=== PATIENT | male | born 1945 | race Caucasian/White ===

== ENCOUNTER → 2020-05-14 08:46 | Outpatient (CLI) | payer MEDICARE, BC, SELFPAY ==
[2020-05-14 09:45] LABS: Add Manual Diff / Slide Review NO; Basophils Absolute Auto 0 /uL (0-100); Basophils Percent Auto 0.5 % (0-2); Eosinophils Absolute Auto 100 /uL (0-450); Eosinophils Percent Auto 1.8 % (2-4); Hematocrit 45.1 % (41-53); Hemoglobin 15.1 g/dL (13.5-17.5); Lymphocytes Absolute Auto 2300 /uL (1100-4500); Lymphocytes Percent Auto 29.7 % (25-40); Mean Corpuscular HGB Conc 33.5 % (30-36); Mean Corpuscular Hemoglobin 32.4 PG (26-34); Mean Corpuscular Volume 96.7 fL (80-100); Monocytes Absolute Auto 700 /uL (0-900); Monocytes Percent Auto 9.4 % (3-14); Neutrophils Absolute Auto 4500 /uL (1500-7000); Neutrophils Percent Auto 58.6 % (50-75); Platelet Count 208 X10^3/uL (150-400); Red Blood Cell Count 4.67 X10^6/uL (4.5-5.9); Red Cell Distribution Width 13.1 % (11.6-14.8); White Blood Cell Count 7.7 X10^3/uL (4.5-11.0)
[2020-05-14 10:09] LABS: Alanine Aminotransferase 35 IU/L (<50); Albumin 4.5 g/dL (3.5-5.0); Albumin Globulin Ratio 1.5 (1.0-2.8); Alkaline Phosphatase 72 U/L (38-126); Aspartate Aminotransferase 30 IU/L (17-59); BUN Creatinine Ratio 15.4 (6-22); Bilirubin Total 0.7 mg/dL (0.2-1.3); Blood Urea Nitrogen 16 mg/dL (9-20); Calcium 9.3 mg/dL (8.4-10.2); Carbon Dioxide 28 mmol/L (22-32); Chloride 104 mmol/L (98-107); Cholesterol 136 mg/dL (140-199); Estimated Glomerular Filt Rate > 60.0 mL/min (>60); Glucose 105 mg/dL (80-110); HDL Cholesterol 48 mg/dL (40-60); HEMOLYSIS < 15 (0-50); LDL Cholesterol Calculated 59 mg/dL (<100); Potassium 4.5 mmol/L (3.4-5.1); Sodium 140 mmol/L (137-145); Total Protein 7.5 g/dL (6.3-8.2); Triglycerides 147 mg/dL (35-150)
[2020-05-14 10:38] LABS: Prostate Specific Antigen Scrn 1.24 ng/mL (0.1-4.0)
[2020-05-14 11:34] LABS: Testosterone 173 ng/dL (71.8-623)
== END ==
PROVIDERS: PCP Internal Medicine; Referring Provider Internal Medicine; Visit Provider Internal Medicine
DX: E66.9 Obesity, unspecified (principal); E78.2 Mixed hyperlipidemia; I10 Essential (primary) hypertension; E29.1 Testicular hypofunction; L40.9 Psoriasis, unspecified; K21.00 Gastro-esophageal reflux disease with esophagitis, without bleeding; Z12.5 Encounter for screening for malignant neoplasm of prostate
CPT/HCPCS: 36415; 80053; 80061; 84403; 85025; G0103

== ENCOUNTER → 2020-05-28 10:31 | Outpatient (CLI) | payer MEDICARE, BC, SELFPAY ==
--- NOTE | 2020-05-28 | DI.US.S_ITS ---
PROCEDURE: US ABD AORTA ANEURYSM SCREEN INDICATIONS: Encounter for screening for cardiovascular disorde TECHNIQUE: Real time scanning was performed of the aorta and iliac arteries, with image documentation. COMPARISON: None. FINDINGS: Aorta: Proximal aortic diameter measures 1.6 cm. Mid-aorta measures 1.7 cm. Distal aortic diameter is 1.1 cm. Iliac arteries: Right common iliac artery measures up to 0.8 cm. Left common iliac artery measures up to 0.8 cm. IMPRESSION: Negative for aneurysm. Dictated by: Payam Boyer M.D. on 05/28/2020 at 11:22 Approved by: Payam Boyer M.D. on 05/28/2020 at 11:27
== END ==
PROVIDERS: PCP Internal Medicine; Referring Provider Internal Medicine; Visit Provider Internal Medicine
DX: Z13.6 Encounter for screening for cardiovascular disorders (principal)
CPT/HCPCS: 76706

== ENCOUNTER → 2020-07-09 10:24 | Outpatient (CLI) | payer MEDICARE, BC, SELFPAY ==
[2020-07-09 12:30] LABS: COVID19 -Nasal RAPID Negative (Negative)
== END ==
PROVIDERS: PCP Internal Medicine; Referring Provider Internal Medicine; Visit Provider Internal Medicine
DX: Z11.59 Encounter for screening for other viral diseases (principal)
CPT/HCPCS: 87635; C9803

== ENCOUNTER → 2020-07-10 06:51 | Outpatient (CLI) | payer MEDICARE, BC, SELFPAY ==
--- NOTE | 2020-07-18 17:34 | PM.PFT.1 ---
Pulmonary Function Test Referral & Results Date Patient Seen: 07/10/20 Requesting provider: Neptali Velasco Results: The spirometry demonstrates an FVC of 3.43 L which is 76% of predicted. The FEV1 was measured at 2.21 L which is 67% of predicted. The FEV1/FVC ratio was 64 which is 88% of predicted. Following the administration of bronchodilator there was a 24% improvement in FEF 25-75%. Lung volumes show an SVC of 3.22 L which is 69% of predicted. The diffusing capacity was measured at 21.34 which is 63% of predicted. The maximum voluntary ventilation was reduced Interpretation: This study demonstrates mild obstructive lung disease based on reduction FEV1 and minimal reduction FEV1/FVC ratio. There is minimal evidence of benefit following bronchodilator particularly small airway flow based on improvement in FEF 25-75% as above. Shape a flow volume loop also suggest an element of obstructive lung disease There is also minimal reduction in lung volumes based on SVC as above Diffusing capacity is also moderately reduced suggesting disease at the capillary alveolar level Clinical correlation suggested
== END ==
PROVIDERS: PCP Internal Medicine; Referring Provider Internal Medicine; Visit Provider Internal Medicine
DX: J44.9 Chronic obstructive pulmonary disease, unspecified (principal); R06.00 Dyspnea, unspecified; Z87.891 Personal history of nicotine dependence
CPT/HCPCS: 94060; 94726; 94729

== ENCOUNTER → 2021-06-30 10:01 | Outpatient (CLI) | payer MEDICARE, BC, SELFPAY ==
[2021-06-30 11:53] LABS: Add Manual Diff / Slide Review NO; Basophils Absolute Auto 0 /uL (0-100); Basophils Percent Auto 0.3 % (0-2); Eosinophils Absolute Auto 100 /uL (0-450); Eosinophils Percent Auto 1.9 % (2-4); Hematocrit 43.3 % (41-53); Hemoglobin 14.7 g/dL (13.5-17.5); Lymphocytes Absolute Auto 2100 /uL (1100-4500); Lymphocytes Percent Auto 31.8 % (25-40); Mean Corpuscular HGB Conc 34.1 % (30-36); Mean Corpuscular Hemoglobin 32.4 PG (26-34); Monocytes Absolute Auto 600 /uL (0-900); Monocytes Percent Auto 8.5 % (3-14); Neutrophils Absolute Auto 3700 /uL (1500-7000); Neutrophils Percent Auto 57.5 % (50-75); Platelet Count 176 X10^3/uL (150-400); Red Blood Cell Count 4.55 X10^6/uL (4.5-5.9); Red Cell Distribution Width 13.2 % (11.6-14.8); White Blood Cell Count 6.5 X10^3/uL (4.5-11.0)
[2021-06-30 12:16] LABS: Alanine Aminotransferase 29 IU/L (<50); Albumin 4.4 g/dL (3.5-5.0); Albumin Globulin Ratio 1.6 (1.0-2.8); Alkaline Phosphatase 56 U/L (38-126); Aspartate Aminotransferase 27 IU/L (17-59); BUN Creatinine Ratio 13.2 (6-22); Bilirubin Total 0.6 mg/dL (0.2-1.3); Blood Urea Nitrogen 14 mg/dL (9-20); Calcium 9.3 mg/dL (8.4-10.2); Carbon Dioxide 27 mmol/L (22-32); Chloride 102 mmol/L (98-107); Estimated Glomerular Filt Rate > 60.0 mL/min (>60); Globulin 2.8 g/dL (1.7-4.1); Glucose 97 mg/dL (80-110); HEMOLYSIS < 15 (0-50); Potassium 4.4 mmol/L (3.4-5.1); Sodium 141 mmol/L (137-145); Total Protein 7.2 g/dL (6.3-8.2)
[2021-06-30 12:58] LABS: Hepatitis B Surface Antigen NEGATIVE s/c (NEGATIVE)
[2021-06-30 13:03] LABS: Hep C Virus Ab w/Reflex Quant NEGATIVE s/c (NEGATIVE)
[2021-07-01 06:12] LABS: Hepatitis B Core Antibody Negative (Negative)
[2021-07-01 10:07] LABS: Hepatitis B Surf Ab Qualitativ Non Reactive (.)
[2021-07-02 16:16] LABS: QuantiFERON Mitogen Value >10.00 IU/mL (.); QuantiFERON Nil Value 0.14 IU/mL (.); QuantiFERON TB Gold Plus Negative (Negative); QuantiFERON TB1 Ag Value 0.15 IU/mL (.); QuantiFERON TB2 Ag Value 0.12 IU/mL (.)
== END ==
PROVIDERS: PCP Internal Medicine; Referring Provider Dermatology; Visit Provider Dermatology
DX: L40.8 Other psoriasis (principal); Z79.899 Other long term (current) drug therapy
CPT/HCPCS: 36415; 80053; 85025; 86480; 86704; 86706; 86803; 87340

== ENCOUNTER 2023-03-02 02:24 | Emergency (ER) | payer MEDICARE, BC, SELFPAY ==
[2023-03-02 02:44] VITALS: BP 177/89; PULSE 60; RESP 16; TEMP 36.3; O2SAT 98; BMI 30.9
--- NOTE | 2023-03-02 05:20 | ED_ITS ---
HPI - Back Pain/Injury General Chief Complaint: Back Pain/Injury Stated Complaint: back and groin pain Time Seen by Provider: 03/02/23 04:54 Source: patient History of Present Illness HPI Narrative: 77-year-old gentleman with a history of hypertension, hyperlipidemia had an echocardiogram over about burden this afternoon and as he was driving back home noticed some discomfort in his right flank. Over the evening it grew progressively worse and is now radiating into the right groin. He comes in for further evaluation. Does have a history of kidney stones in the distant past. He does not typically have chronic back pain. 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 He does not have known inguinal hernias. Does not describe fevers, cough, chills constipation. Related Data Home Medications Medication Instructions Recorded Confirmed atenolol .Route 11/25/21 11/25/21 atorvastatin 40 mg tablet 40 mg PO DAILY 11/25/21 11/25/21 Allergies Allergy/AdvReac Type Severity Reaction Status Date / Time No Known Drug Allergies Allergy Unverified 11/25/21 18:32 Review of Systems Review of Systems Narrative: Pertinent positive and negative findings as per HPI Patient History Medical History (Updated 03/02/23 @ 07:14 by Brynn Carter MD) Hyperlipidemia Hypertension Surgical History (Updated 03/02/23 @ 07:14 by Brynn Carter MD) History of orchiectomy, bilateral Social History Smoking Status: Former smoker Smoking Status: Former smoker Substance Use Type: does not use Exam Initial Vital Signs Initial Vital Signs: Vital Signs Temperature 97.3 F L 03/02/23 02:44 Pulse Rate 60 03/02/23 02:44 Respiratory Rate 16 03/02/23 02:44 Blood Pressure 177/89 H 03/02/23 02:44 Pulse Oximetry 98 03/02/23 02:44 Oxygen Delivery Method Room Air 03/02/23 02:44 General: Healthy appearing, in no acute distress. Able to give a complete and coherent history. Well-nourished well-developed HEENT: Moist mucous membranes, normal sclera with reactive pupils, Respiratory: Lungs are clear to auscultation, no wheezing no rales no rhonchi. Full and symmetrical air movement Cardiac: Regular rate and rhythm no murmurs no bruits Abdomen: Soft, minor tenderness with deep palpation in the right lower quadrant good bowel tones, no flank pain to palpation Groin: A some minor tenderness along the inguinal crease with perhaps a minor lymph node, I am not noting significant inguinal hernias. He has no scrotal pain and both testes are surgically absent Spine: No point tenderness along the lumbar spine no paraspinous tenderness to palpation Skin: Warm and dry, no rashes Neurologic: Grossly neurologically intact with no obvious asymmetries or abnormalities Extremities: No trauma, well perfused Psych: Cooperative, appropriate insight and affect Course Orders Ordered: ED Orders 03/02/23 05:15 Urine Microscopic Stat 03/02/23 05:46 CT kidney ureter bladder (KUB) Stat Discontinued Medications Ketorolac Tromethamine (Ketorolac 30 Mg/Ml Vial) 30 mg IM NOW ONE Stop: 03/02/23 05:46 Last Admin: 03/02/23 05:57 Dose: 30 mg Documented By: SB Vital Signs Vital signs: Vital Signs - 8 hr 03/02/23 02:44 Temperature 97.3 F L Pulse Rate 60 Respiratory Rate 16 Blood Pressure 177/89 H Pulse Oximetry 98 Oxygen Delivery Method Room Air MDM - Back Pain/Injury Lab Data Labs: Lab Results 03/02/23 Range/Units 05:15 Urine RBC 1-5/hpf (0-5/HPF) Urine WBC None seen (0-5/HPF) Ur Squamous Epith Cells None seen (0-5/HPF) Urine Bacteria None seen (None) Ur Culture Indicated? Cult not indicated Urine Dip Bedside Urine Glucose Negative Bedside Urine Bilirubin - Negative Bedside Urine Ketone - Negative Urine Specific [place] 1.015 Bedside Urine Occult Blood + Bedside Urine pH 6.0 Bedside Urine Protein - Negative Bedside Urine Urobilinogen - Negative Bedside Urine Nitrite - Negative Bedside Urine Leukocytes - Negative Esterase MDM Narrative Medical decision making narrative: CC: Right flank groin and lower quadrant pain. Acute finding uncertain prognosis Complicating co-morbidities: Distant history of kidney stones, hypertension, hyperlipidemia, bilateral surgical orchiectomy Data collected from: patient, Differential considered: Radicular L1 pain, kidney stone, appendicitis, constipation, hernia Exam documented above, pertinent findings include: No point tenderness along the lumbar spine, no paraspinous tenderness, minor tenderness along the inguinal crease, no skin changes rashes abscess and minimal tenderness to palpation in the deep right lower quadrant Lab Test results independently reviewed as above. Pertinent findings: Urinalysis with red cells Imaging studies independently reviewed: CT KUB does not show significant pathology. Specifically normal kidneys, no obstructing ureteral stone, no evidence of appendicitis, no incarcerated hernia no new compression fracture Treatments: IM Toradol and discharged home with 4 tablets of Percocet Discussion: Thank you for coming in. I do not have a complete explanation for the right flank and right lower quadrant pain. I am not finding kidney stones, kidney infection, appendicitis, significant constipation, new compression fractures or obvious injury to your lumbar spine. There is no evidence of hernias. He had some minor improvement with Toradol injection and did not want any more than for Percocet to use once he gets home. I did encourage him to return if symptoms worsen or develops new findings that would suggest looking in additional directions. He is safe for discharge home Discharge Plan Departure Patient Disposition: Home Clinical Impression: Acute flank pain, Groin pain, chronic, right Lumbar strain Qualifiers: Encounter type: initial encounter Qualified Code(s): S39.012A - Strain of muscle, fascia and tendon of lower back, initial encounter Instructions: DI for Sciatica Activity Restrictions/Additional Instructions: Thank you for coming in I am not finding any life-threatening explanations for the pain that you are experiencing. The pain is all in the distribution of the L1 nerve on the right side. It may be that this is all just musculoskeletal with radicular findings wrapping around your hip and into groin. I did not find any evidence of kidney stones, compression fractures, appendicitis, severe constipation or other life-threatening abnormalities with a CT scan that we did today. You did have a small amount of blood in your urine but there was no evidence of a bladder infection. You have some minor tenderness in your groin that may be a small lymph node versus a very small hernia, however, I suspect that this is still radicular pain from your back secondary to the L1 nerve. Using 400 mg of ibuprofen (2 [id number] pills) and 1 Tylenol every 6 hours can be very helpful in controlling pain. For severe pain you can use 400 mg of ibuprofen and 1 Percocet. Percocet can cause constipation so make sure you take a stool softener if you do choose to use it If you develop new findings symptoms or concerns please feel free to return to the emergency department and I am happy to re-evaluate Prescriptions: No Action atenolol .Route Rx Instructions: daily atorvastatin 40 mg tablet 40 mg PO DAILY Referrals: Neptali Velasco MD [Primary Care Provider] - Stand Alone Forms: Patient Portal/API
--- NOTE | 2023-03-02 05:46 | DI.CT.S_ITS ---
PROCEDURE: CT KIDNEY URETER BLADDER (KUB) INDICATIONS: right flank pain TECHNIQUE: Axial sections were acquired from the lung bases to the pubic symphysis. Coronal and sagittal reformats were performed. For radiation dose reduction, the following was used: automated exposure control, adjustment of mA and/or kV according to patient size. COMPARISON: Located Within [facility], CT, CT LOW DOSE LUNG CA SCREENING, 09/02/2020, 9:54. Located Within [facility], CT, CT LOW DOSE LUNG CA SCREENING, 06/02/2020, 16:01. FINDINGS: Image quality: Excellent. Lung bases: 4 mm right lateral nodule on series 3, image 1. It is unchanged since 2020. Heart: No significant findings. URINARY: Right Kidney: No stones or hydronephrosis. Right Ureter: No hydroureter. Left Kidney: No stones or hydronephrosis. Left Ureter: No hydroureter. Bladder: Normal wall thickness. No stones. ABDOMEN: Liver: 4 mm low attenuation within the inferior right hepatic lobe on series 2, image 29. Gallbladder: Unremarkable. Biliary ducts: Unremarkable. Pancreas: Unremarkable. Spleen: Unremarkable. Adrenal Glands: Unremarkable. Stomach and Bowel: Stomach, small bowel loops, and colon are nonobstructive. Colonic diverticula is present without inflammatory change. Peritoneum: No abnormal intraperitoneal fluid. No free air. Ventral Wall: No hernia. Abdominal Nodes: No enlarged retroperitoneal or mesenteric lymph nodes. Vessels: Aorta and inferior vena cava are normal in size. PELVIS: Pelvic Organs: Unremarkable. Pelvic Nodes: Unremarkable. Miscellaneous: Bilateral fat containing inguinal hernias are present. Bones: Unremarkable. IMPRESSION: No renal, ureteral or bladder calculi. Diverticulosis. 4 mm low-attenuation focus within the liver too small to definitively characterize. This could represent cyst or potentially hemangioma. The above findings are concordant with preliminary report. Dictated by: Madeleine Cole M.D. on 03/02/2023 at 11:11 Approved by: Madeleine Cole M.D. on 03/02/2023 at 11:15
[2023-03-02] MEDS: KETOROLAC 30 MG/ML VIAL IM (05:57)
[2023-03-02 06:11] LABS: Bacteria Urine None Seen; Culture Indicated Urine Cult Not Indicated; RBC Urine 1-5/HPF (0-5/HPF); Squamous Epithelial Cell Urine None Seen (0-5/HPF); WBC Urine None Seen (0-5/HPF)
[2023-03-02 07:20] VITALS: BP 181/87; PULSE 50; RESP 16; TEMP 36.5; O2SAT 98
[2023-03-02] MEDS: OXYCODONE/APAP 5/325 PREPACK 1 BOTTLE MISC (07:23)
== END 2023-03-02 07:25 | disposition home or self-care (01) ==
PROVIDERS: Emergency Provider Emergency Medicine; PCP Internal Medicine
DX: S39.012A Strain of muscle, fascia and tendon of lower back, initial encounter (principal); R10.31 Right lower quadrant pain
CPT/HCPCS: 74176; 81003; 81015; 96372; 99283; 99284; J1885

== ENCOUNTER 2024-05-21 22:17 | Emergency (ER) | payer MEDICARE, BC, SELFPAY ==
[2024-05-21 22:30] VITALS: BP 170/79; PULSE 79; PULSE 85; RESP 22; TEMP 37.7; O2SAT 93; O2SAT 96; BMI 33.5
--- NOTE | 2024-05-21 22:31 | DI.RAD.S_ITS ---
PROCEDURE: XR CHEST 1V INDICATIONS: Chest pain TECHNIQUE: One view of the chest was acquired. COMPARISON: [facility], CT, CT LOW DOSE LUNG CA SCREENING, 02/05/2024, 10:36. FINDINGS: Surgical changes and devices: None. Lungs and pleura: Lungs are clear. No pleural effusions or pneumothorax. Mediastinum: Mediastinal contours appear normal. Heart size is normal. Bones and chest wall: No suspicious bony lesions. Overlying soft tissues appear unremarkable. Mild chronic deformity of the left chest wall which may be congenital or related to prior trauma. IMPRESSION: No acute cardiopulmonary abnormality is seen. Approved by: Meliton Franks M.D. on 05/21/2024 at 23:03
--- NOTE | 2024-05-21 22:35 | EKG_ITS ---
[address] [address] Test Date: 2024-05-21 Pat Name: Artemio Palacios Department: [facility] Room: Gender: Male Claims Administrator: MYRIAM : [id number] Requested By: Order Number: [id number] Reading MD: Misael Keller Measurements Intervals [place] Rate: 76 P: 36 RI: 142 QRS: -20 QRSD: 92 T: 19 QT: 364 QTc: 409 Interpretive Statements Normal sinus rhythm Electronically Signed On 05-22-2024 8:36:13 PDT by Misael Keller
[2024-05-21 22:53] VITALS: BP 180/81; PULSE 78; O2SAT 93
[2024-05-21 22:59] LABS: Add Manual Diff / Slide Review NO; Basophils Absolute Auto 0 /uL (0-100); Basophils Percent Auto 0.3 % (0-2); Eosinophils Absolute Auto 0 /uL (0-450); Eosinophils Percent Auto 0.4 % (2-4); Hematocrit 40.6 % (41-53); Hemoglobin 13.6 g/dL (13.5-17.5); Lymphocytes Absolute Auto 1100 /uL (1100-4500); Lymphocytes Percent Auto 13.6 % (25-40); Mean Corpuscular HGB Conc 33.6 % (30-36); Mean Corpuscular Hemoglobin 32.6 PG (26-34); Mean Corpuscular Volume 96.9 fL (80-100); Monocytes Absolute Auto 1500 /uL (0-900); Monocytes Percent Auto 18.5 % (3-14); Neutrophils Absolute Auto 5300 /uL (1500-7000); Neutrophils Percent Auto 67.2 % (50-75); Platelet Count 166 X10^3/uL (150-400); Red Blood Cell Count 4.19 X10^6/uL (4.5-5.9); Red Cell Distribution Width 12.9 % (11.6-14.8)
[2024-05-21 23:00] VITALS: BP 186/76; PULSE 81; O2SAT 93
[2024-05-21 23:11] LABS: Alanine Aminotransferase 24 IU/L (<50); Albumin 4.2 g/dL (3.5-5.0); Albumin Globulin Ratio 1.4 (1.0-2.8); Alkaline Phosphatase 55 U/L (38-126); Aspartate Aminotransferase 40 IU/L (17-59); BUN Creatinine Ratio 13.9 (6-22); Blood Urea Nitrogen 16 mg/dL (9-20); Calcium 8.7 mg/dL (8.4-10.2); Carbon Dioxide 29 mmol/L (22-32); Chloride 98 mmol/L (98-107); Creatine Kinase 1098 U/L (55-170); Estimated Glomerular Filt Rate > 60 mL/min (>60); Glucose 120 mg/dL (80-110); HEMOLYSIS < 15 (0-50); Lipase 89 U/L (23-300); Potassium 3.7 mmol/L (3.4-5.1); Sodium 135 mmol/L (137-145); Total Protein 7.2 g/dL (6.3-8.2)
[2024-05-21 23:17] VITALS: PULSE 76; RESP 22; O2SAT 93
[2024-05-21] MEDS: ALBUTEROL/IPRATROPIUM 3 ML AMPUL INH (23:17)
[2024-05-21 23:22] LABS: Troponin I < 0.012 ng/mL (0.01-0.034)
--- NOTE | 2024-05-21 23:27 | ED.GENADULT ---
HPI - General Adult General Chief complaint: Shortness of Breath/Dyspnea Stated complaint: severe chest cold, dizziness Time Seen by Provider: 05/21/24 22:31 Source: patient Mode of arrival: Ambulatory History of Present Illness HPI narrative: Patient is a 78-year-old male. Does have a smoking history but quit approximately 30 years ago. No other underlying lung pathology such as emphysema or asthma. No history of CHF. Is here for evaluation of progressively worsening cough over the past couple days. Fever earlier today. Has been taking Mucinex without much improvement. States that his symptoms are worse with lying down. No lower extremity swelling. He states this evening the coughing was to the point where he felt like he needed to be evaluated. Related Data Home Medications Medication Instructions Recorded Confirmed atenolol .Route 11/25/21 11/25/21 atorvastatin 40 mg tablet 40 mg PO DAILY 11/25/21 11/25/21 Previous Rx's Medication Instructions Recorded benzonatate 100 mg capsule 100 mg PO BID-TID PRN cough #14 05/22/24 caps Allergies Allergy/AdvReac Type Severity Reaction Status Date / Time No Known Drug Allergies Allergy Unverified 11/25/21 18:32 Review of Systems Review of Systems ROS Unobtainable: All systems reviewed & are unremarkable except as noted in HPI and below Patient History Medical History Hyperlipidemia Hypertension Surgical History (Updated 03/02/23 @ 07:14 by Brynn Carter MD) History of orchiectomy, bilateral Social History Smoking Status: Former smoker Smoking Status: Former smoker Substance Use Type: does not use Exam Initial Vital Signs Initial Vital Signs: Vital Signs Temperature 99.8 F H 05/21/24 22:30 Pulse Rate 85 05/21/24 22:30 Respiratory Rate 22 05/21/24 22:30 Blood Pressure 170/79 H 05/21/24 22:30 Pulse Oximetry 96 05/21/24 22:30 Oxygen Delivery Method Room Air 05/21/24 22:30 Const General: cooperative, comfortable and No ill appearing HENMT Head: normal to inspection and normocephalic Resp Effort & Inspection: cough, not labored, no respiratory distress and not tachypneic Auscultation: rales and rhonchi Cardio Rate: regular rate Rhythm: regular rhythm GI Inspection: normal to inspection and non-distended Skin General: no rashes or lesions noted Neuro General: patient alert, patient awake and moves all extremities Extrem General: capillary refill normal Course Orders Ordered: ED Orders 05/21/24 22:29 EKG-12 Lead Stat 05/21/24 22:31 XR chest 1V Stat 05/21/24 22:50 Complete Blood Count AUTO DIFF Stat Comprehensive Metabolic Panel Stat Lipase Stat Troponin & CK Cardiac Panel Stat 05/21/24 23:10 RT Consult Eval and Treat NOW 05/21/24 23:30 Covid-19 + FLU A/B + RSV - PCR Stat Discontinued Medications Albuterol/Ipratropium (Albuterol/Ipratropium 3 Ml Ampul) 3 ml INH NOW ONE Stop: 05/21/24 23:14 Last Admin: 05/21/24 23:17 Dose: 3 ml Documented By: EMMIE Benzonatate (Benzonatate 100 Mg Capsule) 100 mg PO NOW ONE Stop: 05/22/24 00:50 Last Admin: 05/22/24 00:55 Dose: 100 mg Documented By: MODE Vital Signs Vital signs: Vital Signs - 8 hr 05/21/24 22:30 05/21/24 22:30 05/21/24 22:53 Temperature 99.8 F H Pulse Rate 85 79 78 Respiratory Rate 22 Blood Pressure 170/79 H Pulse Oximetry 96 93 93 Oxygen Delivery Method Room Air Oxygen Flow Rate Fraction of Inspired Oxygen 05/21/24 22:53 05/21/24 23:00 05/21/24 23:00 Temperature Pulse Rate 81 Respiratory Rate Blood Pressure 180/81 H 186/76 H Pulse Oximetry 93 Oxygen Delivery Method Oxygen Flow Rate Fraction of Inspired Oxygen 05/21/24 23:17 05/21/24 23:30 05/21/24 23:31 Temperature Pulse Rate 76 81 83 Respiratory Rate 22 24 29 H Blood Pressure Pulse Oximetry 93 92 93 Oxygen Delivery Method Room Air Oxygen Flow Rate 0 Fraction of Inspired Oxygen 21 05/21/24 23:31 05/22/24 00:00 05/22/24 00:01 Temperature Pulse Rate 87 Respiratory Rate 23 Blood Pressure 165/77 H 162/74 H Pulse Oximetry 94 Oxygen Delivery Method Room Air Oxygen Flow Rate Fraction of Inspired Oxygen 05/22/24 00:01 05/22/24 00:30 05/22/24 00:31 Temperature Pulse Rate 82 81 81 Respiratory Rate 20 19 18 Blood Pressure Pulse Oximetry 93 93 93 Oxygen Delivery Method Room Air Room Air Oxygen Flow Rate Fraction of Inspired Oxygen 05/22/24 00:31 Temperature Pulse Rate Respiratory Rate Blood Pressure 172/72 H Pulse Oximetry Oxygen Delivery Method Oxygen Flow Rate Fraction of Inspired Oxygen Medical Decision Making Lab Data Lab results reviewed: Yes I reviewed the patient's lab results. 05/21/24 22:50 05/21/24 22:50 Labs: Lab Results 05/21/24 05/21/24 Range/Units 22:50 23:30 WBC 8.0 (4.5-11.0) X10^3/uL RBC 4.19 L (4.5-5.9) X10^6/uL Hgb 13.6 (13.5-17.5) g/dL Hct 40.6 L (41-53) % MCV 96.9 (80-100) fL MCH 32.6 (26-34) PG MCHC 33.6 (30-36) % RDW 12.9 (11.6-14.8) % Plt Count 166 (150-400) X10^3/uL Neut % (Auto) 67.2 (50-75) % Lymph % (Auto) 13.6 L (25-40) % [place] % (Auto) 18.5 H (3-14) % Eos % (Auto) 0.4 L (2-4) % Baso % (Auto) 0.3 (0-2) % Neut # (Auto) 5300 (5787-4986) /uL Lymph # (Auto) 1100 (3547-4804) /uL [place] # (Auto) 1500 H (0-900) /uL Eos # (Auto) 0 (0-450) /uL Baso # (Auto) 0 (0-100) /uL Sodium 135 L (137-145) mmol/L Potassium 3.7 (3.4-5.1) mmol/L Chloride 98 (98-107) mmol/L Carbon Dioxide 29 (22-32) mmol/L BUN 16 (9-20) mg/dL Creatinine 1.15 (0.66-1.25) mg/dL Estimated GFR > 60 (>60) mL/min BUN/Creatinine Ratio 13.9 (6-22) Glucose 120 H (80-110) mg/dL Calcium 8.7 (8.4-10.2) mg/dL Total Bilirubin 1.0 (0.2-1.3) mg/dL AST 40 (17-59) IU/L ALT 24 (<50) IU/L Alkaline Phosphatase 55 (38-126) U/L Total Creatine Kinase 1098 H (55-170) U/L Troponin I < 0.012 (0.01-0.034) ng/mL Total Protein 7.2 (6.3-8.2) g/dL Albumin 4.2 (3.5-5.0) g/dL Globulin 3.0 (1.7-4.1) g/dL Albumin/Globulin Ratio 1.4 (1.0-2.8) Lipase 89 (23-300) U/L SARS-CoV-2 (PCR) Negative (Negative) Influenza A (RT-PCR) Flu a negative (NEGATIVE) Influenza B (RT-PCR) Flu b negative (NEGATIVE) RSV (PCR) Negative (Negative) Imaging Data Chest x-ray: Radiologist's Impression: PROCEDURE: XR CHEST 1V INDICATIONS: Chest pain TECHNIQUE: One view of the chest was acquired. COMPARISON: [facility], CT, CT LOW DOSE LUNG CA SCREENING, 02/05/2024, 10:36. FINDINGS: Surgical changes and devices: None. Lungs and pleura: Lungs are clear. No pleural effusions or pneumothorax. Mediastinum: Mediastinal contours appear normal. Heart size is normal. Bones and chest wall: No suspicious bony lesions. Overlying soft tissues appear unremarkable. Mild chronic deformity of the left chest wall which may be congenital or related to prior trauma. IMPRESSION: No acute cardiopulmonary abnormality is seen. ECG Data Attestation: I personally reviewed and interpreted this ECG as follows: Interpretation: Sinus rhythm Ventricular rate is 76 Normal axis Normal QRS Normal QTC No ST T wave changes MDM Narrative Medical decision making narrative: Patient was not hypoxic. Is nontoxic appearing. Chest x-ray is not consistent with pneumonia. It does have coarse breath sounds. He was given a nebulizer treatment with only minimal improvement. Low suspicion for ACS. His COVID and flu were negative however symptoms are still consistent with URI/bronchitis. He was no indication for antibiotics. We discussed [id number] medications. Was given Tessalon to try to help with the cough. I suspect that his symptoms will improve with time. He was given return precautions. He expressed understanding and agreement. Discharge Plan Departure Patient Disposition: Home Clinical Impression: Bronchitis Instructions: DI for Bronchiolitis Activity Restrictions/Additional Instructions: I do recommend that you continue with the cetirizine. You can use the Tessalon as needed for the cough. Contact your primary care doctor for a follow-up. Return to the emergency department for new symptoms. Prescriptions: New benzonatate 100 mg capsule 100 mg PO BID-TID PRN (Reason: cough) Qty: 14 0RF No Action atenolol .Route Rx Instructions: daily atorvastatin 40 mg tablet 40 mg PO DAILY Referrals: Neptali Velasco MD [Primary Care Provider] - Stand Alone Forms: Patient Portal/API
[2024-05-21 23:30] VITALS: PULSE 81; RESP 24; O2SAT 92
[2024-05-21 23:31] VITALS: BP 165/77; PULSE 83; RESP 29; O2SAT 93
[2024-05-22] VITALS: PULSE 87; RESP 23; O2SAT 94
[2024-05-22 00:01] VITALS: BP 162/74; PULSE 82; RESP 20; O2SAT 93
[2024-05-22 00:21] LABS: Influenza A - CEPHEID Flu A NEGATIVE (NEGATIVE); Influenza B - CEPHEID Flu B NEGATIVE (NEGATIVE); Respiratory Syncytial Virus Negative (Negative)
[2024-05-22 00:28] LABS: COVID-19 CEPHEID 4-PLEX PCR Negative (Negative)
[2024-05-22 00:30] VITALS: PULSE 81; RESP 19; O2SAT 93
[2024-05-22 00:31] VITALS: BP 172/72; PULSE 81; RESP 18; O2SAT 93
[2024-05-22] MEDS: BENZONATATE 100 MG CAPSULE PO (00:55)
== END 2024-05-22 01:00 | disposition home or self-care (01) ==
PROVIDERS: Emergency Provider Emergency Medicine; PCP Internal Medicine
DX: J40 Bronchitis, not specified as acute or chronic (principal); R07.9 Chest pain, unspecified; Z11.52 Encounter for screening for COVID-19
CPT/HCPCS: 0241U; 36415; 71045; 80053; 82550; 83690; 84484; 85025; 93005; 94640; 99284

== ENCOUNTER 2024-05-23 07:33 | Emergency (ER) | payer MEDICARE, BC, SELFPAY ==
[2024-05-23] VITALS (8 sets, daily range): BP systolic 137–173; BP diastolic 63–75; PULSE 67–87; RESP 17–26; TEMP 36.9; O2SAT 92–95; BMI 33.5
--- NOTE | 2024-05-23 07:53 | ED_ITS ---
HPI - General Adult General Chief complaint: Shortness of Breath/Dyspnea Stated complaint: difficulty breathing Time Seen by Provider: 05/23/24 07:38 History of Present Illness HPI narrative: 78-year-old man with no history of COPD or asthma but a distant history of smoking, hypertension hyperlipidemia has been sick now for 2-1/2 weeks with upper respiratory symptoms. He was seen on the because his cough was worsening. Workup at that time suggested continued viral etiology with no suggestion of congestive heart failure. Over the ensuing 48 hours he notes that his cough is getting worse, he is increasingly short of breath, he is beginning to have some purulent sputum, he has had some episodes of feeling hot but no overt fevers or chills. He is not hypoxic, orthopneic is not feeling palpitations, no headaches comes in for further evaluation Related Data Home Medications Medication Instructions Recorded Confirmed atenolol .Route 11/25/21 11/25/21 atorvastatin 40 mg tablet 40 mg PO DAILY 11/25/21 11/25/21 Previous Rx's Medication Instructions Recorded benzonatate 100 mg capsule 100 mg PO BID-TID PRN cough #14 05/22/24 caps doxycycline hyclate 100 mg capsule 100 mg PO BID #20 caps 05/23/24 hydrocodone 5 mg-acetaminophen 325 0.5 - 1 tab PO Q6-8H PRN pain, 05/23/24 mg tablet cough #14 tabs prednisone 20 mg tablet 20 mg PO DAILY #5 tabs 05/23/24 Allergies Allergy/AdvReac Type Severity Reaction Status Date / Time No Known Drug Allergies Allergy Unverified 11/25/21 18:32 Review of Systems Review of Systems Narrative: Pertinent positive and negative findings as per HPI Patient History Medical History Hyperlipidemia Hypertension Surgical History History of orchiectomy, bilateral Social History Smoking Status: Former smoker Smoking Status: Former smoker Substance Use Type: does not use Exam Initial Vital Signs Initial Vital Signs: General: Healthy appearing, in no acute distress. Able to give a complete and coherent history while speaking in full sentences. Well-nourished well- developed HEENT: Moist mucous membranes, normal sclera with reactive pupils, Respiratory: Lungs with wheezing in all lung rosales and rhonchi in the right lower lung area Cardiac: Regular rate and rhythm no murmurs no bruits Abdomen: Soft, nontender, good bowel tones, no flank pain Skin: Warm and dry, no rashes, no lower extremity edema Neurologic: Grossly neurologically intact with no obvious asymmetries or abnormalities Extremities: No trauma, well perfused Psych: Cooperative, appropriate insight and affect Course Orders Ordered: ED Orders 05/23/24 07:44 Complete Blood Count AUTO DIFF Stat Comprehensive Metabolic Panel Stat Lactate (Lactic Acid) Stat NT-proBNP (BNP-Adult 18+) Stat Prothrombin Time INR Stat Respiratory Panel (Film Array) Stat Troponin I Stat 05/23/24 07:49 XR chest 1V Stat EKG-12 Lead Stat Measure peak expiratory flow ONCE RT Consult Eval and Treat NOW Medical Decision Making Lab Data 05/23/24 07:44 05/23/24 07:44 MDM Narrative Medical decision making narrative: CC: Cough increasing 2-1/2 weeks now since beginning of viral syndrome Complicating co-morbidities: Viral upper respiratory infection, hypertension, hyperlipidemia no known coronary artery disease or congestive heart failure Data collected from: patient, Medical records reviewed: ER note from 05/21 is reviewed thorough workup was done. No evidence of COVID, RSV, influenza, congestive heart failure, sepsis, acute coronary syndrome, pneumothorax with no indication for antibiotics or admission at that time. He was given Tessalon Perles Differential considered:, Post viral bacterial pneumonia, pneumothorax, acute coronary syndrome, congestive heart failure, renal failure Exam documented above, pertinent findings include: Aside from persistent cough and rhonchi developing in the right base with wheezing throughout all lung rosales his exam is completely benign Lab Test results independently reviewed as above. Pertinent findings: Lab tests from 05/21 are reviewed summarized in medical record section above Independently reviewed EKG: Sinus rhythm at a rate of 78 with no ischemic changes Imaging studies independently reviewed: Chest x-ray done on 05/21 is reviewed no infiltrates or suggestion of pulmonary edema appreciated that time Consultations: Treatments: 60 mg of oral prednisone, DuoNeb treatment, 1st dose of doxycycline as initiated Re-evaluations: DuoNeb did not influence the wheeze at all. Vicodin did suppress the cough slightly Discussion: 78-year-old gentleman with a post viral bacterial pneumonia developing in the right lower lung with no evidence of respiratory distress or sepsis. We will place him on 10 days of doxycycline, 5 days of prednisone given the wheezing. With shared decision-making discussing cough suppression alternatives we decided on a brief course of Vicodin for both pain control and cough suppression. At this point there was no indication for additional blood work, imaging or hospitalization. Questions are answered. If he has not improved by the he does need to return and he is aware of that. He is safe for discharge Discharge Plan Departure Patient Disposition: Home Clinical Impression: Bacterial pneumonia Instructions: DI for Pneumonia -- Adult Activity Restrictions/Additional Instructions: Thank you for coming in today Your initial viral infection has now progressed to a bacterial pneumonia developing in your right lower lobe. With your lung function slightly compromised from the virus, bacteria have simply taken advantage of you. This is not infectious. I am not seeing signs of heart attack, sepsis, congestive heart failure or alternate explanations for your symptoms that would require hospitalization. For the pneumonia itself I have given you a prescription for doxycycline an antibiotic to take 2 times a day for 10 days For the inflammation in your lungs I have given you 5 additional days of prednisone, 20 mg a day. For cough suppression as well as pain control from the cough and the pleuritic pain from your pneumonia, I have given you a small course of hydrocodone/ Vicodin. I think you will find 1 helpful for pain control, half is all you will need to help with cough suppression. Using 400 mg of ibuprofen (2 zbsy-ajd-exypikh pills) and 1 Tylenol every 6 hours can be very helpful in controlling pain. You can add 1 Vicodin/hydrocodone to this combination Prescriptions have all been electronically transmitted to [facility] You should start seeing an improvement within 2-3 days. If you are still having worsening symptoms by Tuesday you need to return to the ER Prescriptions: New doxycycline hyclate 100 mg capsule 100 mg PO BID Qty: 20 0RF prednisone 20 mg tablet 20 mg PO DAILY Qty: 5 0RF hydrocodone-acetaminophen 5-325 mg tablet 0.5 - 1 tab PO Q6-8H PRN (Reason: pain, cough) Qty: 14 0RF No Action atenolol .Route Rx Instructions: daily atorvastatin 40 mg tablet 40 mg PO DAILY benzonatate 100 mg capsule 100 mg PO BID-TID PRN (Reason: cough) Qty: 14 0RF Referrals: Neptali Velasco MD [Primary Care Provider] - Stand Alone Forms: Patient Portal/API
--- NOTE | 2024-05-23 07:55 | EKG_ITS ---
[address] [address] Test Date: 2024-05-23 Pat Name: Artemio Palacios Department: [facility] Room: Gender: Male [employer] Fe[employer]: ELIJAH : [id number] Requested By: Order Number: [id number] Reading MD: Misael Keller Measurements Intervals [place] Rate: 78 P: 38 [place]: 136 QRS: -14 QRSD: 90 T: 8 QT: 374 QTc: 426 Interpretive Statements Normal sinus rhythm Electronically Signed On 05-23-2024 13:39:32 PDT by Misael Keller
[2024-05-23 07:57] LABS: Add Manual Diff / Slide Review NO; Basophils Absolute Auto 0 /uL (0-100); Basophils Percent Auto 0.3 % (0-2); Eosinophils Absolute Auto 0 /uL (0-450); Eosinophils Percent Auto 0.4 % (2-4); Hematocrit 39.9 % (41-53); Hemoglobin 13.6 g/dL (13.5-17.5); Lymphocytes Absolute Auto 1200 /uL (1100-4500); Lymphocytes Percent Auto 11.8 % (25-40); Mean Corpuscular Hemoglobin 32.8 PG (26-34); Mean Corpuscular Volume 96.2 fL (80-100); Monocytes Absolute Auto 1500 /uL (0-900); Monocytes Percent Auto 15.7 % (3-14); Neutrophils Absolute Auto 7000 /uL (1500-7000); Neutrophils Percent Auto 71.8 % (50-75); Platelet Count 186 X10^3/uL (150-400); Red Blood Cell Count 4.14 X10^6/uL (4.5-5.9); Red Cell Distribution Width 12.8 % (11.6-14.8); White Blood Cell Count 9.8 X10^3/uL (4.5-11.0)
[2024-05-23] MEDS: DOXYCYCLINE HYCLATE 100 MG TABLET PO (08:11)
[2024-05-23] MEDS: predniSONE 20 MG TABLET 60 MG PO (08:11)
[2024-05-23] MEDS: HYDROCODONE/ACET 5/325 TABLET 1 TAB PO (08:11)
[2024-05-23 08:24] LABS: Urine Volume 10mL (spun)
[2024-05-23] MEDS: ALBUTEROL/IPRATROPIUM 3 ML AMPUL INH (08:26)
[2024-05-23 08:28] LABS: Bacteria Urine None Seen; Culture Indicated Urine Cult Not Indicated; RBC Urine None Seen (0-5/HPF); Squamous Epithelial Cell Urine None Seen (0-5/HPF); WBC Urine None Seen (0-5/HPF)
[2024-05-23 08:43] LABS: Adenovirus Not Detected (Not Detect); B. parapertussis Not Detected (Not Detecte); Bordetella pertussis Not Detected (Not Detect); Chlamydophila pneumoniae Not Detected (Not Detect); Coronavirus 229E Not Detected (Not Detect); Coronavirus HKU1 Not Detected (Not Detect); Coronavirus NL 63 Not Detected (Not Detect); Coronavirus OC43 Not Detected (Not Detect); Human Metapneumovirus Not Detected (Not Detect); Human Rhinovirus/Enterovirus Not Detected (Not Detect); Influenza A Not Detected (Not Detect); Influenza B Not Detected (Not Detect); Mycoplasma pneumoniae Detected (Not Detect); Parainfluenza Virus 1 Not Detected (Not Detect); Parainfluenza Virus 2 Not Detected (Not Detect); Parainfluenza Virus 3 Not Detected (Not Detect); Parainfluenza Virus 4 Not Detected (Not Detect); Respiratory Syncytial Virus Not Detected (Not Detect); SARS- CoV-2 Not Detected (Not Detecte)
== END 2024-05-23 09:18 | disposition home or self-care (01) ==
PROVIDERS: Emergency Provider Emergency Medicine; PCP Family Medicine Sports Medicine
DX: J18.9 Pneumonia, unspecified organism (principal); I10 Essential (primary) hypertension; E78.5 Hyperlipidemia, unspecified
CPT/HCPCS: 81003; 81015; 85025; 87633; 93005; 94640; 99284

== ENCOUNTER → 2025-04-18 07:59 | Outpatient (CLI) | payer MEDICARE, BC, SELFPAY ==
--- NOTE | 2025-04-18 08:02 | DI.CT.S_ITS ---
PROCEDURE: CT ABDOMEN PELVIS WO CON INDICATIONS: ascites TECHNIQUE: CT of the abdomen and pelvis was obtained without intravenous contrast. Coronal and sagittal reformats were performed. For radiation dose reduction, the following was used: automated exposure control, adjustment of mA and/or kV according to patient size. COMPARISON: Located Within [facility], CT, CT KIDNEY URETER BLADDER (KUB), 03/02/2023, 6:06. FINDINGS: Image quality: Diagnostic Lower chest: Similar subpleural nodule in the left lower lobe. Mild areas of atelectasis. Another nodule is seen in the right lower lobe also stable. These are considered benign. Borderline cardiomegaly. Coronary calcifications. Small hiatal hernia. Liver: No contour deforming mass. Solid organs are not well assessed without IV contrast Gallbladder and biliary system: Unremarkable, nondilated Pancreas: No ductal dilation Spleen: Nonenlarged Adrenals: No discrete nodules Kidneys: No hydronephrosis. 1-2 mm punctate nonobstructing calculi are seen on the right. Vessels and lymph nodes: No lymphadenopathy by size criteria. Mild aortoiliac atherosclerotic calcifications. Bowel and peritoneum: No small bowel obstruction. Colonic diverticula. No drainable abscess or ascites. Body wall: Unremarkable. Small fat containing inguinal hernias in the pelvis Pelvis: Bladder is unremarkable. Prostate is not well assessed on this study. Bones: No aggressive appearing osseous abnormality. 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 There are degenerative osseous changes. IMPRESSION: No ascites identified. No drainable fluid collection in the abdomen/pelvis. Few 1-2 mm punctate nonobstructing right renal calculi. No hydronephrosis. Other findings above. Dictated by: Marco A Subramanian M.D. on 04/18/2025 at 10:08 Approved by: Marco A Subramanian M.D. on 04/18/2025 at 10:12
== END ==
PROVIDERS: PCP Family Medicine; Referring Provider Family Medicine; Visit Provider Family Medicine
DX: I50.9 Heart failure, unspecified (principal); N20.0 Calculus of kidney; R63.5 Abnormal weight gain; R60.9 Edema, unspecified; R91.8 Other nonspecific abnormal finding of lung field; I25.10 Atherosclerotic heart disease of native coronary artery without angina pectoris; K44.9 Diaphragmatic hernia without obstruction or gangrene; K57.90 Diverticulosis of intestine, part unspecified, without perforation or abscess without bleeding; K40.90 Unilateral inguinal hernia, without obstruction or gangrene, not specified as recurrent
CPT/HCPCS: 74176